=== PATIENT | female | born 1935 | race Caucasian/White ===

== ENCOUNTER 2019-12-20 21:20 | Inpatient (IN) ==
[2019-12-20] MEDS ORDERED: ONDANSETRON 4 MG/2 ML VIAL IV STA (21:46)
[2019-12-20] MEDS ORDERED: fentaNYL 100 MCG/2 ML VIAL IV STA ×2 (21:46→23:18)
[2019-12-20 22:18] LABS: Basophils # 0.1 10*3/uL (0.0-0.2); Basophils % 0.7 % (0.0-0.8); Eosinophils # 0.1 10*3/uL (0.0-0.87); Eosinophils % 1.2 % (0.00-10.9); Hematocrit 41.1 VOL% (35.7-47.0); Hemoglobin 13.2 GM/DL (12.0-16.0); Immature Granulocytes % 0.8 %; Immature Granulocytes Absolute 0.06 #; Lymphocytes # 1.7 10*3/uL (1.4-4.0); Lymphocytes % 22.2 % (21.3-54.2); Mean Corpuscular HGB Conc 32.1 GM/DL (32-36); Mean Corpuscular Volume 96.7 FL (87-102); Mean Platelet Volume 9.3 FL (9.6-12.0); Monocytes % 5.7 % (1.7-12.7); Neutrophils % 69.4 % (38.7-73.9); Platelet Count 275 T/CUMM (130-400); Red Blood Count 4.25 MC/CUMM (3.8-5.5); Red Cell Distribution Width 12.9 % (9.3-17.3); White Blood Count 7.7 T/CUMM (4-12)
[2019-12-20 22:34] LABS: Partial Thromboplastin Time 33.1 SECS (20.8-36.0)
[2019-12-20 22:38] LABS: Alanine Aminotransferase 26 U/L (13-56); Albumin 3.5 G/DL (3.4-5.0); Alkaline Phosphatase 79 U/L (45-117); Aspartate Amino Transferase 17 U/L (0-37); Bilirubin,Total < 0.39 MG/DL (0.2-1.0); Blood Urea Nitrogen 26 MG/DL (7-18); Calcium 10.7 MG/DL (8.5-10.1); Estimated Glom Filtration Rate 62 ML/MIN; Glucose 181 MG/DL (74-106); Osmolality,Calculated 284.7 MOS/KG (273-304); Total Protein 6.9 G/DL (6.4-8.3)
[2019-12-20 22:43] LABS: PT Patient Result 21.6 SECS (9.6-12.2)
[2019-12-21] MEDS ORDERED: fentaNYL 100 MCG/2 ML VIAL IV PRN (00:50)
[2019-12-21] MEDS: SODIUM CHLORIDE 0.45% 1,000 ML IV SCH ×3 (05:50→16:05)
[2019-12-21] MEDS: ONDANSETRON 4 MG/2 ML VIAL IV PRN ×2 (08:32→17:25)
[2019-12-21] MEDS ORDERED: ACETAMINOPHEN 325 MG TABLET PO PRN (16:52)
[2019-12-21] MEDS: PANTOPRAZOLE 40 MG TABLET PO SCH (17:32)
[2019-12-21] MEDS: buPROPion 75 MG TABLET PO SCH (17:33)
[2019-12-21] MEDS: DOCUSATE SODIUM 100 MG CAPSULE PO SCH (20:33)
[2019-12-22] MEDS: SODIUM CHLORIDE 0.45% 1,000 ML IV SCH ×3 (05:35→19:18)
[2019-12-22 06:25] LABS: Basophils % 0.5 % (0.0-0.8); Eosinophils % 0.2 % (0.00-10.9); Hematocrit 34.9 VOL% (35.7-47.0); Hemoglobin 11.7 GM/DL (12.0-16.0); Immature Granulocytes % 0.5 %; Immature Granulocytes Absolute 0.04 #; Lymphocytes # 0.9 10*3/uL (1.4-4.0); Lymphocytes % 11.3 % (21.3-54.2); Mean Corpuscular HGB Conc 33.5 GM/DL (32-36); Mean Corpuscular Volume 94.3 FL (87-102); Mean Platelet Volume 9.7 FL (9.6-12.0); Monocytes % 7.3 % (1.7-12.7); Neutrophils % 80.2 % (38.7-73.9); Platelet Count 202 T/CUMM (130-400); Red Cell Distribution Width 12.7 % (9.3-17.3); White Blood Count 8.1 T/CUMM (4-12)
[2019-12-22 06:28] LABS: INR 2.4
[2019-12-22] MEDS ORDERED: VANCOMYCIN INJ 1,000 MG in SODIUM CHLORIDE 0.9% 250 ML IV ONE ×2 (06:28→07:00)
[2019-12-22 06:35] LABS: PT Patient Result 26.1 SECS (9.6-12.2)
[2019-12-22 06:55] LABS: Albumin 2.7 G/DL (3.4-5.0); Bilirubin,Total 1.3 MG/DL (0.2-1.0); Calcium 10.1 MG/DL (8.5-10.1); Osmolality,Calculated 266.4 MOS/KG (273-304); Thyroid Stimulating Hormone 1.77 uIU/ml (0.358-3.74)
[2019-12-22] MEDS ORDERED: PHYTONADIONE 10 MG/1 ML AMP SUBCUT ONE (08:05)
[2019-12-22] MEDS: PANTOPRAZOLE 40 MG TABLET PO SCH (10:48)
[2019-12-22] MEDS: buPROPion 75 MG TABLET PO SCH (10:48)
[2019-12-22] MEDS: DOCUSATE SODIUM 100 MG CAPSULE PO SCH ×2 (10:48→20:38)
[2019-12-22] MEDS: METOPROLOL SUCCINATE XL 100 MG TABLET PO SCH (10:49)
[2019-12-22] MEDS: hydroCHLOROthiazide 25 MG TABLET PO SCH (10:49)
[2019-12-23 06:02] LABS: Basophils % 0.5 % (0.0-0.8); Eosinophils # 0.1 10*3/uL (0.0-0.87); Eosinophils % 0.9 % (0.00-10.9); Hematocrit 34.5 VOL% (35.7-47.0); Hemoglobin 11.2 GM/DL (12.0-16.0); Immature Granulocytes % 0.6 %; Immature Granulocytes Absolute 0.04 #; Lymphocytes # 0.8 10*3/uL (1.4-4.0); Lymphocytes % 11.9 % (21.3-54.2); Mean Corpuscular HGB Conc 32.5 GM/DL (32-36); Mean Corpuscular Volume 94.5 FL (87-102); Mean Platelet Volume 9.4 FL (9.6-12.0); Monocytes % 8.4 % (1.7-12.7); Neutrophils % 77.7 % (38.7-73.9); Platelet Count 190 T/CUMM (130-400); Red Blood Count 3.65 MC/CUMM (3.8-5.5); Red Cell Distribution Width 12.3 % (9.3-17.3); White Blood Count 6.6 T/CUMM (4-12)
[2019-12-23] MEDS: ONDANSETRON 4 MG/2 ML VIAL IV PRN (06:05)
[2019-12-23] MEDS ORDERED: ceFAZolin 1,000 MG in SYRINGE 1 EACH IV ONE (06:28)
[2019-12-23 06:54] LABS: INR 1.4; PT Patient Result 14.9 SECS (9.6-12.2)
[2019-12-23] MEDS ORDERED: ALBUTEROL/IPRATROPIUM 3 ML NEB RESP TX ONE (08:15)
[2019-12-23] MEDS: PANTOPRAZOLE 40 MG TABLET PO SCH (08:25)
[2019-12-23] MEDS: DOCUSATE SODIUM 100 MG CAPSULE PO SCH ×2 (08:25→20:27)
[2019-12-23] MEDS: buPROPion 75 MG TABLET PO SCH (08:26)
[2019-12-23] MEDS ORDERED: DEXAMETHASONE 4 MG/1 ML VIAL ONE (08:36)
[2019-12-23] MEDS ORDERED: EPINEPHrine 1 MG/ML VIAL ONE (08:36)
[2019-12-23] MEDS ORDERED: BUPIVACAINE MPF 0.25% 30 ML VIAL ONE (08:36)
[2019-12-23] MEDS: METOPROLOL SUCCINATE XL 100 MG TABLET PO SCH (08:37)
[2019-12-23] MEDS: SODIUM CHLORIDE 0.45% 1,000 ML IV SCH (08:47)
[2019-12-23] MEDS ORDERED: VANCOMYCIN 1,000 MG VIAL ONE (10:15)
[2019-12-23] MEDS ORDERED: BACITRACIN OINT 0.9 GM PACK TOP ONE (11:17)
[2019-12-23] MEDS ORDERED: MORPHINE 4 MG/1 ML VIAL IV PRN (11:31)
[2019-12-23] MEDS ORDERED: DESFLURANE 1 UNIT/15 MINUTE INH ONE (11:55)
[2019-12-23] MEDS ORDERED: propofoL 200 MG/20 ML VIAL IV ONE (11:55)
[2019-12-23] MEDS ORDERED: PHENYLEPHRINE DRIP 20 MG/250 ML PREMIX IV ONE (11:55)
[2019-12-23] MEDS ORDERED: HYDROmorphone 2 MG/1 ML VIAL ONE (11:56)
[2019-12-23] MEDS ORDERED: MIDAZOLAM 2 MG/2 ML VIAL ONE (11:56)
[2019-12-23] MEDS ORDERED: ONDANSETRON 4 MG/2 ML VIAL ONE (11:56)
[2019-12-23] MEDS ORDERED: TRANEXAMIC ACID 1,000 MG/10 ML VIAL ONE (11:56)
[2019-12-23] MEDS ORDERED: fentaNYL 100 MCG/2 ML VIAL ONE (11:56)
[2019-12-23] MEDS ORDERED: HYDROCORTISONE 100 MG VIAL ONE (11:57)
[2019-12-23] MEDS ORDERED: SODIUM CHLORIDE 0.9% 250 ML IV ONE (11:57)
[2019-12-23] MEDS ORDERED: GLYCOPYRROLATE 0.4 MG/2 ML VIAL ONE (11:57)
[2019-12-23] MEDS ORDERED: ROCURONIUM 100 MG/10 ML VIAL IV ONE (11:57)
[2019-12-23] MEDS ORDERED: ETOMIDATE 40 MG/20 ML VIAL IV ONE (11:57)
[2019-12-23] MEDS ORDERED: SODIUM CHLORIDE 0.9% 100 ML IV ONE (11:57)
[2019-12-23] MEDS ORDERED: NEOSTIGMINE 10 MG/10 ML VIAL ONE (11:57)
[2019-12-23] MEDS: hydroCHLOROthiazide 25 MG TABLET PO SCH (14:22)
[2019-12-23] MEDS: LACTATED RINGERS 1,000 ML IV SCH (14:39)
[2019-12-23] MEDS: ceFAZolin 1,000 MG in SYRINGE 1 EACH IV SCH (16:16)
[2019-12-23] MEDS: WARFARIN 3 MG TABLET PO SCH (19:41)
[2019-12-23] MEDS: MORPHINE 4 MG/1 ML VIAL IV PRN (22:04)
[2019-12-24] MEDS ORDERED: ceFAZolin 1,000 MG in SYRINGE 1 EACH IV SCH (02:30)
[2019-12-24] MEDS: ceFAZolin 1,000 MG in SYRINGE 1 EACH IV SCH (02:36)
[2019-12-24] MEDS: LACTATED RINGERS 1,000 ML IV SCH ×3 (02:47→19:39)
[2019-12-24] MEDS: MORPHINE 4 MG/1 ML VIAL IV PRN (05:57)
[2019-12-24 06:26] LABS: Basophils % 0.1 % (0.0-0.8); Hematocrit 29.9 VOL% (35.7-47.0); Hemoglobin 9.8 GM/DL (12.0-16.0); Immature Granulocytes % 0.6 %; Immature Granulocytes Absolute 0.04 #; Lymphocytes # 0.7 10*3/uL (1.4-4.0); Lymphocytes % 9.4 % (21.3-54.2); Mean Corpuscular HGB Conc 32.8 GM/DL (32-36); Mean Corpuscular Volume 95.8 FL (87-102); Mean Platelet Volume 10.1 FL (9.6-12.0); Monocytes % 6.4 % (1.7-12.7); Neutrophils % 83.5 % (38.7-73.9); Platelet Count 208 T/CUMM (130-400); Red Blood Count 3.12 MC/CUMM (3.8-5.5); Red Cell Distribution Width 12.7 % (9.3-17.3); White Blood Count 7.1 T/CUMM (4-12)
[2019-12-24 06:36] LABS: Calcium 10.1 MG/DL (8.5-10.1); Osmolality,Calculated 257.4 MOS/KG (273-304)
[2019-12-24] MEDS ORDERED: LACTATED RINGERS 500 ML IV ONE (06:37)
[2019-12-24 06:40] LABS: INR 1.1; PT Patient Result 11.4 SECS (9.6-12.2)
[2019-12-24] MEDS: PANTOPRAZOLE 40 MG TABLET PO SCH (09:05)
[2019-12-24] MEDS: DOCUSATE SODIUM 100 MG CAPSULE PO SCH ×2 (09:06→23:18)
[2019-12-24] MEDS: buPROPion 75 MG TABLET PO SCH (09:06)
[2019-12-24] MEDS: METOPROLOL SUCCINATE XL 100 MG TABLET PO SCH (09:54)
[2019-12-24] MEDS: hydroCHLOROthiazide 25 MG TABLET PO SCH (09:54)
[2019-12-24] MEDS: MAGNESIUM HYDROXIDE SUSP 30 ML UDCUP PO PRN (11:23)
[2019-12-24] MEDS: SODIUM CHLORIDE 0.9% 1,000 ML IV SCH (13:20)
[2019-12-24] MEDS ORDERED: FUROSEMIDE 20 MG/2 ML VIAL IV ONE ×2 (15:00→22:47)
[2019-12-24] MEDS ORDERED: methylPREDNISolone SOD SUC 40 MG/1 ML VIAL IV ONE (15:00)
[2019-12-24] MEDS ORDERED: ALBUTEROL/IPRATROPIUM 3 ML NEB RESP TX ONE (15:00)
[2019-12-24] MEDS: WARFARIN 3 MG TABLET PO SCH (19:37)
[2019-12-24] MEDS ORDERED: ASPIRIN CHEW 81 MG TABLET PO ONE (22:29)
[2019-12-24] MEDS ORDERED: NITROGLYCERIN SL 0.4 MG TABLET SL PRN (22:29)
[2019-12-24] MEDS ORDERED: MORPHINE 4 MG/1 ML VIAL IV PRN (22:29)
[2019-12-24] MEDS ORDERED: NITROGLYCERIN SL 0.4 MG TABLET SL ONE (22:30)
[2019-12-24] MEDS ORDERED: ALUM/MAG/SIMETH/LIDO VISC 1:1 30 ML BOTTLE PO ONE (22:47)
[2019-12-24] MEDS ORDERED: ENOXAPARIN 40 MG/0.4 ML SYRINGE SUBCUT ONE (22:51)
[2019-12-24 23:02] LABS: Allen Test Positive; Pt O2 Delivery Device Simple Mask
[2019-12-24 23:03] LABS: ABG Base Excess 5.1 MMOL/L (-2.5-2.5); ABG PCO2 39.6 MM HG (35-48); ABG PH 7.473 (7.35-7.45); ABG TCO2 26.6 MMOL/L (23-27)
[2019-12-24 23:03] LABS: Hematocrit 28.7 VOL% (35.7-47.0); Hemoglobin 9.6 GM/DL (12.0-16.0); Immature Granulocytes % 0.6 %; Immature Granulocytes Absolute 0.04 #; Lymphocytes # 0.5 10*3/uL (1.4-4.0); Lymphocytes % 7.2 % (21.3-54.2); Mean Corpuscular HGB Conc 33.4 GM/DL (32-36); Mean Corpuscular Volume 93.8 FL (87-102); Mean Platelet Volume 9.6 FL (9.6-12.0); Monocytes % 4.5 % (1.7-12.7); Neutrophils % 87.7 % (38.7-73.9); Platelet Count 214 T/CUMM (130-400); Red Blood Count 3.06 MC/CUMM (3.8-5.5); Red Cell Distribution Width 12.7 % (9.3-17.3); White Blood Count 6.4 T/CUMM (4-12)
[2019-12-24 23:17] LABS: PT Patient Result 10.7 SECS (9.6-12.2)
[2019-12-24 23:37] LABS: Albumin 2.3 G/DL (3.4-5.0); Bilirubin,Total 0.6 MG/DL (0.2-1.0); Calcium 9.2 MG/DL (8.5-10.1); Osmolality,Calculated 260.9 MOS/KG (273-304); Total Protein 5.6 G/DL (6.4-8.3)
[2019-12-25] MEDS ORDERED: ALBUTEROL/IPRATROPIUM 3 ML NEB RESP TX PRN (00:59)
[2019-12-25] MEDS: SODIUM CHLORIDE 0.9% 1,000 ML IV SCH ×2 (01:30→09:43)
[2019-12-25 02:55] LABS: Hematocrit 28.4 VOL% (35.7-47.0); Hemoglobin 9.3 GM/DL (12.0-16.0); Immature Granulocytes % 0.7 %; Immature Granulocytes Absolute 0.04 #; Lymphocytes # 0.4 10*3/uL (1.4-4.0); Mean Corpuscular HGB Conc 32.7 GM/DL (32-36); Mean Platelet Volume 9.8 FL (9.6-12.0); Monocytes % 8.2 % (1.7-12.7); Neutrophils % 84.1 % (38.7-73.9); Platelet Count 221 T/CUMM (130-400); Red Blood Count 3.02 MC/CUMM (3.8-5.5); Red Cell Distribution Width 12.8 % (9.3-17.3)
[2019-12-25 03:13] LABS: Troponin I 0.182 NG/ML (0.00-0.045)
[2019-12-25 03:21] LABS: Apearance,Urine CLEAR (Clear); Bilirubin,Urine Negative (Negative); Blood, Urine Moderate mg/dL (Negative); Glucose,Urine (UA) Negative (Negative); Hyaline Casts,Urine 4 /LPF (0-3); Ketones,Urine Negative (Negative); Mucus,Urine Occasional /LPF (Occasional); Nitrite,Urine Negative (Negative); Protein,Urine Negative; RBC,Urine 6 /HPF (0-4); Squamous Epithelial Cell,Urine Occasional /HPF (0-10); Urine Color Yellow (Yellow); Urine Specific Gravity 1.009 (1.001-1.035); Urine Urobilinogen < 2.0 EU/DL (0.2-1.0)
[2019-12-25] MEDS ORDERED: FUROSEMIDE 20 MG/2 ML VIAL IV ONE (08:00)
[2019-12-25] MEDS ORDERED: TUBERCULIN SKIN TEST 0.1 ML SYRINGE INTRADERM ONE (08:46)
[2019-12-25] MEDS ORDERED: ENOXAPARIN 80 MG/0.8 ML SYRINGE SUBCUT SCH (09:00)
[2019-12-25] MEDS: PANTOPRAZOLE 40 MG TABLET PO SCH (09:05)
[2019-12-25] MEDS: ASPIRIN EC 81 MG TABLET PO SCH (09:05)
[2019-12-25] MEDS: DOCUSATE SODIUM 100 MG CAPSULE PO SCH ×2 (09:05→20:39)
[2019-12-25] MEDS: buPROPion 75 MG TABLET PO SCH (09:05)
[2019-12-25] MEDS: METOPROLOL SUCCINATE XL 100 MG TABLET PO SCH (09:05)
[2019-12-25 09:43] LABS: PT Patient Result 10.6 SECS (9.6-12.2)
[2019-12-25] MEDS: LACTATED RINGERS 1,000 ML IV SCH (09:43)
[2019-12-25] MEDS: MAGNESIUM HYDROXIDE SUSP 30 ML UDCUP PO PRN (14:59)
[2019-12-25] MEDS: WARFARIN 3 MG TABLET PO SCH (17:46)
[2019-12-26 05:33] LABS: INR 0.9; PT Patient Result 10.2 SECS (9.6-12.2)
[2019-12-26 05:39] LABS: Basophils % 0.2 % (0.0-0.8); Hematocrit 28.6 VOL% (35.7-47.0); Hemoglobin 9.5 GM/DL (12.0-16.0); Immature Granulocytes % 0.6 %; Immature Granulocytes Absolute 0.03 #; Lymphocytes % 20.7 % (21.3-54.2); Mean Corpuscular HGB Conc 33.2 GM/DL (32-36); Mean Corpuscular Volume 93.2 FL (87-102); Mean Platelet Volume 9.9 FL (9.6-12.0); Monocytes % 11.8 % (1.7-12.7); Neutrophils % 66.7 % (38.7-73.9); Platelet Count 259 T/CUMM (130-400); Red Blood Count 3.07 MC/CUMM (3.8-5.5); Red Cell Distribution Width 12.7 % (9.3-17.3)
[2019-12-26 05:48] LABS: Risk Ratio 3.18; VLDL CHOLESTEROL 19.8 MG/DL
[2019-12-26 07:02] LABS: Calcium 9.7 MG/DL (8.5-10.1); Osmolality,Calculated 253.4 MOS/KG (273-304)
[2019-12-26] MEDS: PANTOPRAZOLE 40 MG TABLET PO SCH (08:45)
[2019-12-26] MEDS: DOCUSATE SODIUM 100 MG CAPSULE PO SCH ×2 (08:45→21:09)
[2019-12-26] MEDS: ISOSORBIDE MONONITRATE 30 MG TABLET PO SCH (08:46)
[2019-12-26] MEDS: buPROPion 75 MG TABLET PO SCH (08:46)
[2019-12-26] MEDS: ASPIRIN EC 81 MG TABLET PO SCH (08:46)
[2019-12-26] MEDS: METOPROLOL SUCCINATE XL 100 MG TABLET PO SCH ×2 (08:46→21:09)
[2019-12-26] MEDS: WARFARIN 3 MG TABLET PO SCH (18:13)
[2019-12-26] MEDS: ROSUVASTATIN 10 MG TABLET PO SCH (21:09)
[2019-12-27 06:20] LABS: PT Patient Result 10.8 SECS (9.6-12.2)
[2019-12-27 06:36] LABS: Calcium 9.5 MG/DL (8.5-10.1); Osmolality,Calculated 255.2 MOS/KG (273-304)
[2019-12-27] MEDS ORDERED: WARFARIN 5 MG TABLET PO ONE (07:54)
[2019-12-27] MEDS: ASPIRIN EC 81 MG TABLET PO SCH (08:11)
[2019-12-27] MEDS: PANTOPRAZOLE 40 MG TABLET PO SCH (08:11)
[2019-12-27] MEDS: DOCUSATE SODIUM 100 MG CAPSULE PO SCH ×2 (08:12→20:38)
[2019-12-27] MEDS: METOPROLOL SUCCINATE XL 100 MG TABLET PO SCH ×2 (08:12→20:38)
[2019-12-27] MEDS: ISOSORBIDE MONONITRATE 30 MG TABLET PO SCH (08:12)
[2019-12-27] MEDS: ONDANSETRON 4 MG/2 ML VIAL IV PRN (11:07)
[2019-12-27] MEDS ORDERED: FUROSEMIDE 40 MG/4 ML VIAL IV ONE (18:27)
[2019-12-27] MEDS: WARFARIN 3 MG TABLET PO SCH (18:34)
[2019-12-27] MEDS: ROSUVASTATIN 10 MG TABLET PO SCH (20:38)
[2019-12-28 05:50] LABS: INR 1.2; PT Patient Result 13.1 SECS (9.6-12.2)
[2019-12-28 06:07] LABS: Calcium 9.4 MG/DL (8.5-10.1); Osmolality,Calculated 259.1 MOS/KG (273-304)
[2019-12-28] MEDS: METOPROLOL SUCCINATE XL 100 MG TABLET PO SCH ×2 (08:08→21:06)
[2019-12-28] MEDS: DOCUSATE SODIUM 100 MG CAPSULE PO SCH ×2 (08:08→21:06)
[2019-12-28] MEDS: PANTOPRAZOLE 40 MG TABLET PO SCH (08:08)
[2019-12-28] MEDS: ISOSORBIDE MONONITRATE 30 MG TABLET PO SCH (08:08)
[2019-12-28] MEDS: ASPIRIN EC 81 MG TABLET PO SCH (08:08)
[2019-12-28] MEDS ORDERED: FUROSEMIDE 40 MG/4 ML VIAL IV SCH (09:00)
[2019-12-28] MEDS: WARFARIN 3 MG TABLET PO SCH (18:22)
[2019-12-28] MEDS: ROSUVASTATIN 10 MG TABLET PO SCH (21:06)
[2019-12-29] MEDS: ALUMINUM/MAGNES/SIMETH MAX STR 30 ML UDCUP PO PRN ×2 (02:14→10:30)
[2019-12-29 05:36] LABS: INR 1.8; PT Patient Result 19.4 SECS (9.6-12.2)
[2019-12-29 06:05] LABS: Calcium 9.3 MG/DL (8.5-10.1); Osmolality,Calculated 255.2 MOS/KG (273-304)
[2019-12-29 07:53] VITALS: BP 108/66
[2019-12-29] MEDS ORDERED: NYSTATIN 500,000 UNIT/5 ML UDCUP SWISH/SWAL ONE (08:19)
[2019-12-29] MEDS: DOCUSATE SODIUM 100 MG CAPSULE PO SCH (08:23)
[2019-12-29] MEDS: ASPIRIN EC 81 MG TABLET PO SCH (08:24)
[2019-12-29] MEDS: ISOSORBIDE MONONITRATE 30 MG TABLET PO SCH (08:24)
[2019-12-29] MEDS: PANTOPRAZOLE 40 MG TABLET PO SCH (08:24)
[2019-12-29] MEDS: METOPROLOL SUCCINATE XL 100 MG TABLET PO SCH (08:24)
[2019-12-29] MEDS ORDERED: valACYclovir 500 MG TABLET PO SCH (11:12)
== END 2019-12-29 11:40 | DRG 469 ==
LOC: N.ED 21:20 → N.EDINP 23:15 → N.3E 23:49
PROVIDERS: ADMIT Family Medicine; ATTEND Family Medicine